=== PATIENT | female | born 1995 | race Caucasian/White ===

== ENCOUNTER 2020-09-10 18:38 | Emergency (ER) | payer OTHER ==
[~2020-09-10] VITALS: Ht 162.6 cm; Wt 74.3 kg
--- NOTE | 2020-09-10 19:58 | NUR ---
INNOVATION MANAGER: CALL TO ROOM, PT NOT IN LOBBY AT THIS TIME.
--- NOTE | 2020-09-10 20:10 | NUR ---
rn care manager: Pt to room from lobby at this time.
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
--- NOTE | 2020-09-10 20:45 | NUR ---
REPORT TO PAULIEN IBARRA.
--- NOTE | 2020-09-10 20:49 | NUR ---
PATIENT RESTING ON GURNEY. COMPLAINING OF BODY ACHES. MOTHER AT BEDSIDE.
--- NOTE | 2020-09-10 21:09 | NUR ---
GAVE TWO PILLOWS TO PATIENT.
--- NOTE | 2020-09-10 21:24 | NUR ---
PATIENT TO CT
[2020-09-10] MEDS ORDERED: SODIUM CHLORIDE 0.9% 1,000ML IVBOLUS ONE (21:30)
--- NOTE | 2020-09-10 21:32 | NUR ---
PATIENT RETURNED FROM CT. CONNECTED TO MONITOR.
--- NOTE | 2020-09-10 21:37 | NUR ---
PATIENT RESTING COMFORTABLY ON GURNEY. STATES PAIN CONTINUES IN BACK, REPORTS IT IS "TOLERABLE". STATES "PILLOWS HAVE HELPED MY BACK" MONITOR RECONNECTED.
--- NOTE | 2020-09-10 21:40 | NUR ---
CALLED L&D FOR TONES ON PATIENT.
[2020-09-10 21:41] LABS: MICROSCOPIC INDICATED
[2020-09-10 21:54] LABS: AMPHETAMINE SCREEN, URINE Negative (Negative); BARBITURATE SCREEN, URINE Negative (Negative); BENZODIAZEPINE SCREEN, URINE Negative (Negative); CANNABINOID SCREEN, URINE Negative (Negative); COCAINE SCREEN, URINE Positive (Negative); METHADONE SCREEN, URINE Negative (Negative); OPIATE SCREEN, URINE Positive (Negative)
[2020-09-10 23:50] VITALS: BP 101/53
--- NOTE | 2020-09-10 23:51 | NUR ---
Patient signed AMA paperwork as she refused to have labs done. Encouraged f/u with OB. Patient given discharge instructions and they have confirmed that they understand the instructions. Patient ambulatory with steady gait. NAD, all questions answered appropriately, denies additional needs at this time. No personal belongings left in room after discharge.
== END 2020-09-10 20:00 | disposition home or self-care (01) ==
LOC: ED 19:00
DX: O99.352 Diseases of the nervous system complicating pregnancy, second trimester (principal); R94.31 Abnormal electrocardiogram [ECG] [EKG]; Z3A.21 21 weeks gestation of pregnancy
CPT/HCPCS: 70450; 76815; 80307; 81001; 87086; 93005; 99285

== ENCOUNTER 2020-10-31 14:02 | Outpatient (CLI) | payer OTHER ==
[~2020-10-31] VITALS: Ht 162.6 cm; Wt 72.7 kg
[2020-10-31 15:22] VITALS: BP 115/68
[2020-10-31 15:57] LABS: AMPHETAMINE SCREEN, URINE Negative (Negative); BARBITURATE SCREEN, URINE Negative (Negative); BENZODIAZEPINE SCREEN, URINE Negative (Negative); CANNABINOID SCREEN, URINE Negative (Negative); COCAINE SCREEN, URINE Negative (Negative); METHADONE SCREEN, URINE Negative (Negative); OPIATE SCREEN, URINE Positive (Negative)
[2020-10-31 16:22] LABS: MICROSCOPIC INDICATED
[2020-10-31] MEDS ORDERED: PREN1TAB60 PO (17:53)
== END 2020-10-31 18:06 | disposition home or self-care (01) ==
LOC: LDOP 14:02
PROVIDERS: ATTEND Obstetrics & Gynecology
DX: O32.1XX0 Maternal care for breech presentation, not applicable or unspecified (principal); Z3A.29 29 weeks gestation of pregnancy
CPT/HCPCS: 36415; 59025; 76805; 80307; 81001; 82950; 87086; 87491; 87591